=== PATIENT | male | born 1965 | race Caucasian/White ===

== ENCOUNTER 2017-01-26 13:06 | Emergency (ER) | payer OTHER ==
[~2017-01-26] VITALS: Ht 175.3 cm; Wt 117.9 kg
[~2017-01-26 13:06] MED LIST: CIPROFLOXACIN500 MG PO; DILAUDID4 MG PO; FENTANYL1 EAC2 TD; GABAPENTIN300 MG PO; GEODON20 MG PO; HYDROCHLOROTH12.5 MG PO; LISINOPRIL20 MG PO; METOPROLOL TART25 MG PO; METRONIDAZOLE250 MG PO; OXYCODONE HCL5 MG PO; PERCOCET 10-321 EACH PO; PREVACID30 MG PO; SYNTHROID88 MCG PO
[2017-01-26] MEDS ORDERED: ZITHROMAX250 MG PO (14:23)
--- NOTE | 2017-01-27 07:42 | EKG ---
[facility] [address] [facility] [place], [place] [address] Signed Normal sinus rhythm Normal ECG No previous ECGs available Confirmed by KARRIE PRATHER MD ([id number]) on 01/27/2017 7:42:22 AM Electronically Signed By: KARRIE PRATHER MD 01/27/17 0742 PATIENT NAME: ROSAMARIA DONALD Electrocardiogram DATE OF : 69 PHYSICIAN: KARRIE PRATHER MD REPORT #: [id number] REPORT IS CONFIDENTIAL AND NOT TO BE RELEASED WITHOUT AUTHORIZATION
== END 2017-01-26 14:45 | disposition home or self-care (01) ==
LOC: ED 13:06
DX: J40 Bronchitis, not specified as acute or chronic (principal); I10 Essential (primary) hypertension; K21.9 Gastro-esophageal reflux disease without esophagitis; E03.9 Hypothyroidism, unspecified; F17.200 Nicotine dependence, unspecified, uncomplicated; Z88.8 Allergy status to other drugs, medicaments and biological substances; Z79.899 Other long term (current) drug therapy
CPT/HCPCS: 71020; 80053; 81001; 85025; 93005; 93010; 99283

== ENCOUNTER 2017-05-11 09:04 | Day surgery (SDC) | payer OTHER ==
[~2017-05-11] VITALS: Ht 175.3 cm; Wt 110.2 kg
[~2017-05-11 09:04] MED LIST changes: +ADVAIR 250-501 EACH INH; +BUPROPION XL300 MG PO; +EPIN0.3P IM; +LISINOPRIL40 MG PO; +NEURONTIN600 MG PO; +PANTOPRAZOLE SO40 MG PO; +SYNTHROID175 MCG PO; +VITAMIN D350000 UNIT PO; +ZITHROMAX250 MG PO
--- NOTE | 2017-05-11 10:45 | NUR ---
05/11/17 1045 Latha Patricia 1040 PATIENT ARRIVES TO PACU AWAKE OFF/ON. RESP EVEN AND UNLABORED, NC @ 4 LITERS, SATS 89-94%. PATIENT DENIES PAIN OR NAUSEA.
--- NOTE | 2017-05-12 07:54 | OR ---
[facility] [address] [place], [place] [address] Signed DATE OF OPERATION: 05/11/2017 SURGEON: Livia Barbre MD COLONOSCOPY REPORT PREOPERATIVE DIAGNOSIS: Screening. POSTOPERATIVE DIAGNOSES: 1. 4-5 mm polyps at proximal right colon; 72 cm, 65 cm and 22 cm. 2. Urkylkm-qu-hcujznyc internal hemorrhoids. PROCEDURE: Colonoscopy with hot biopsy. ESTIMATED BLOOD LOSS: None. 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 He was asked to see me for his initial colonoscopy. He said he has no lower GI complaints. There is no family history of colon cancer or polyps. In the office, I gave him a pamphlet on colonoscopy. We looked at that together along with the risks including, but not limited to gas bloating, crampy abdominal pain, bleeding, perforation, requiring surgery, and missed diagnosis. We also discussed the need for IV conscious sedation. He had expressed understanding and wished to proceed. PROCEDURE NOTE: Mando was taken into our endoscopy suite and placed in the left lateral decubitus position. He was given preoperative antibiotic along with 10 mg of Versed and 175 mcg of fentanyl to cover the case. A digital rectal exam was performed and I could feel the bottom of the prostate. It was a little indurated, but no nodules. The adult colonoscope was then introduced and advanced all around into the cecum under direct visualization of camera without difficulty. His prep was good. The scope was then withdrawn. The above-mentioned polyps were removed with the help of hot biopsy forceps. The scope had been retroflexed and he does have some mccsuhd-lq-kycgtzgj internal hemorrhoid columns. After this, the gas was suctioned out and the colonoscope removed. Blu tolerated the procedure quite well. Electronically Signed By: LIVIA BARBER MD 05/12/17 0754 PATIENT NAME: BLU DONALD OPERATIVE REPORT DATE OF : 69 REPORT #: [id number] PHYSICIAN: LIVIA BARBER MD PCP: NATALIE INTERIANO DO REPORT IS CONFIDENTIAL AND NOT TO BE RELEASED WITHOUT AUTHORIZATION [address] [address] Signed RECOMMENDATIONS: I will see Blu back in my office in 7 to 14 days to review his results. Livia Barber MD ALB/MODL /[id number] cc: DO Livia Herrera MD Copies: NATALIE INTERIANO ANDREW L MD ~ Electronically Signed By: LIVIA BARBER MD 05/12/17 0754 PATIENT NAME: BLU DONALD OPERATIVE REPORT DATE OF : 69 REPORT #: [id number] PHYSICIAN: LIVIA BARBER MD PCP: NATALIE INTERIANO DO REPORT IS CONFIDENTIAL AND NOT TO BE RELEASED WITHOUT AUTHORIZATION
== END 2017-05-11 11:20 | disposition home or self-care (01) ==
LOC: OPS 09:04 → DS 09:04 → OPS 10:30
PROVIDERS: Colon & Rectal Surgery
PROC: 0DBE8ZZ Excision of Large Intestine, Via Natural or Artificial Opening Endoscopic (ICD-10-PCS; 2017-05-11)
PROC: 0DBK8ZZ Excision of Ascending Colon, Via Natural or Artificial Opening Endoscopic (ICD-10-PCS; principal; 2017-05-11 10:30)
DX: Z12.11 Encounter for screening for malignant neoplasm of colon (principal); D12.2 Benign neoplasm of ascending colon; D12.6 Benign neoplasm of colon, unspecified; K63.5 Polyp of colon; K64.8 Other hemorrhoids; I10 Essential (primary) hypertension; M19.90 Unspecified osteoarthritis, unspecified site; Z79.51 Long term (current) use of inhaled steroids; Z79.899 Other long term (current) drug therapy
CPT/HCPCS: 88305; 99153; G0500; J2250; J3010; J3490; J7120

== ENCOUNTER 2018-06-06 08:55 | Emergency (ER) | payer OTHER ==
[~2018-06-06] VITALS: Ht 175.3 cm; Wt 110.2 kg
--- OUTSIDE RECORDS SUMMARY | ~2018-06-06 | XMS | Encounter Summary ---
Demographics + + + | Address | [address] | | | [place] [address] | + + + | Home Phone | | + + + | Preferred Language | Unknown | + + + | Marital Status | Legally | + + + | Yarsanism Affiliation | 1025 | + + + | Race | Unknown | + + + | Ethnic Group | Unknown | + + + Author + + + | Author | [facility] | | | and [place] | + + + | Organization | [facility] | | | and [place] | + + + | Address | Unknown | + + + | Phone | Unavailable | + + + Support + + +---------+ + | Name | Relationship | Address | Phone | + + +---------+ + | Miya Lynch | ECON | Unknown | | + + +---------+ + Care Team Providers + +------+ + | Care Compressor Assembler Name | Role | Phone | + +------+ + | Parker Perales DO | PCP | | + +------+ + Reason for Referral Consultation (Routine) + + + + + + + | Status | Reason | Specialty | Diagnoses / | Referred By | Referred To | | | | | Procedures | Contact | Contact | + + + + + + + | Authorized | Specialty | Neurology | Diagnoses | Adwoa, | Chuck, | | | Services | | SHERI | Paola Rust DO | Nasra Gregg, | | | Required | | (obstructive | [address] | [address] | | | | | sleep | [place], | [address], | | | | | apnea) | [place] [address] | [place] | | | | | | Phone: | [place], [place] | | | | | | [phone] | [address] Phone: | | | | | | Fax: | [phone] | | | | | | [phone] | Fax: | | | | | | | [phone] | + + + + + + + Evaluate & Treat (Routine) + + + + + + + | Status | Reason | Specialty | Diagnoses / | Referred By | Referred To | | | | | Procedures | Contact | Contact | + + + + + + + | Authorized | Specialty | Physical | Diagnoses | Adwoa | Cc Wgr | | | Services | Therapy / | Chronic | Paola A, DO | Therapy Pt | | | Required | Rehabilitatio | neck and | [address] | [address] | | | | n | back pain | [place], | [place], | | | | | Chronic | [place] [address] | [place] [address] | | | | | bilateral | Phone: | Phone: | | | | | low back | [phone] | [phone] | | | | | pain with | Fax: | Fax: | | | | | bilateral | [phone] | [phone] | | | | | sciatica | | | | | | | Chronic left | | | | | | | shoulder | | | | | | | pain | | | | | | | Procedures | | | | | | | PT EVAL | | | + + + + + + + Evaluate & Treat (Routine) + + + + + + + | Status | Reason | Specialty | Diagnoses / | Referred By | Referred To | | | | | Procedures | Contact | Contact | + + + + + + + | Authorized | Specialty | Orthopedic | Diagnoses | Adwoa, | Annamarie, | | | Services | Surgery | Bilateral | Paola Rust DO | Mauro | | | Required | | carpal | [address] | MD Brandan | | | | | tunnel | [place], | [address] | | | | | syndrome | [place] [address] | [address] [place], | | | | | | Phone: | [place] [address] | | | | | | [phone] | Phone: | | | | | | Fax: | [phone] | | | | | | [phone] | Fax: | | | | | | | [phone] | + + + + + + + Evaluate & Treat (Routine) + + + + + + + | Status | Reason | Specialty | Diagnoses / | Referred By | Referred To | | | | | Procedures | Contact | Contact | + + + + + + + | Authorized | Specialty | Anesthesiolog | Diagnoses | Adwoa, | Mary, | | | Services | y | Chronic | Paola Rust DO | MD [place] | | | Required | | neck and | [address] | [address] | | | | | back pain | [place], | [facility] | | | | | Degenerative | [place] [address] | Rd [place], | | | | | disc | Phone: | [place] | | | | | disease, | [phone] | [address] | | | | | cervical | Fax: | Phone: | | | | | Chronic | [phone] | [phone] | | | | | bilateral | | Fax: | | | | | low back | | [phone] | | | | | pain with | | | | | | | bilateral | | | | | | | sciatica | | | + + + + + + + Reason for Visit + + + | Reason | Comments | + + + | Establish Care | | + + + | Carpal Tunnel | Bilat, x5yrs | + + + | Referral | [facility] | | (PreAuthorization) | | + + + Encounter Details +--------+---------+ + + + | Date | Type | Department | Care Team | Description | +--------+---------+ + + + | 05/26/ | Office | [place] | Paola Orona, | Encounter to | | 2019 | Visit | [facility] | DO [address] [place] | establish care | | | | [facility] [address] | [place] [address] | (Primary Dx); | | | | [address] [place], | [phone] | Chronic neck and | | | | [place] [address] | | back pain; | | | | [phone] | | Degenerative disc | | | | | | disease, cervical; | | | | | | Chronic bilateral | | | | | | low back pain with | | | | | | bilateral sciatica; | | | | | | Chronic left | | | | | | shoulder pain; SHERI | | | | | | (obstructive sleep | | | | | | apnea); Bipolar 1 | | | | | | disorder (HCC); | | | | | | Tobacco use; | | | | | | Essential | | | | | | hypertension; | | | | | | Hyperlipidemia, | | | | | | unspecified | | | | | | hyperlipidemia type; | | | | | | Acquired | | | | | | hypothyroidism; | | | | | | Vitamin D | | | | | | deficiency; | | | | | | Bilateral carpal | | | | | | tunnel syndrome; | | | | | | Other specified | | | | | | diabetes mellitus | | | | | | without | | | | | | complication, | | | | | | without long-term | | | | | | current use of | | | | | | insulin (HCC); | | | | | | Abnormal function of | | | | | | pupil of left eye | +--------+---------+ + + + Social History + + + +--------+ + | Tobacco Use | Types | Packs/Day | Years | Date | | | | | Used | | + + + +--------+ + | Current Every Day | Cigarettes | 0.5 | | Started: 05/26/2016 | | Smoker | | | | | + + + +--------+ + + +---+---+---+ | Smokeless Tobacco: | | | | | Former User | | | | + +---+---+---+ + + | Tobacco Cessation: Ready to Quit: Yes; Counseling Given: Yes | | Comments: Quit multiple times for yrs at a time. | + + + + +---------+ + | Alcohol Use | Drinks/We | oz/Week | Comments | | | ek | | | + + +---------+ + | Yes | 1 Cans | 0.6 | Once a yr. | | | of beer | | | + + +---------+ + + + + | Sex Assigned at | Date Recorded | | | | + + + | Not on file | | + + + + + + + | Job Start Date | Occupation | Industry | + + + + | Not on file | Not on file | Not on file | + + + + + + + + | Travel History | Travel Start | Travel End | + + + + + + | No recent travel history available. | + + documented as of this encounter Last Filed Vital Signs + + + + | Vital Sign | Reading | Time Taken | + + + + | Blood Pressure | 138/78 | 05/26/2018 1330 PDT | + + + + | Pulse | 56 | 05/26/2018 1330 PDT | + + + + | Temperature | 36.7 C (98 F) | 05/26/20180 PDT | + + + + | Respiratory Rate | 18 | 05/26/2018 1330 PDT | + + + + | Oxygen Saturation | 94% | 05/26/20180 PDT | + + + + | Inhaled Oxygen | - | - | | Concentration | | | + + + + | Weight | 88.5 kg (195 lb) | 05/26/2018 1330 PDT | + + + + | Height | 175.3 cm (5' 9") | 05/26/2018 1330 PDT | + + + + | Body Mass Index | 28.8 | 05/26/2018 1330 PDT | + + + + documented in this encounter Patient Instructions Patient Instructions Paola Orona DO - 05/26/2018 13:30 PDTReturn for lab and we will c all you with results. documented in this encounter Progress Notes Paola Orona DO - 05/26/2018 1330 PDTFormatting of this note might be different from paige elmore. Subjective: Patient ID: Blu Abdullahi is a 53 y.o. male. Here to establish care. Has been following with neurology for his chronic pain of neck and back. Has had multiple neck surgery and still has chronic pain. Would like referral to pain clinic in [place]. Needs refill on Neurontin that helps he states. He had EMG by Dr Chavez in [place] for bilateral carpal tunnel syndrome and would like to see Ortho in [facility] for this. Has numbness and stiffness in both hands. He is permanently disabled mostly due to the back and neck. He has untreated SHERI and agrees to see Dr Rodriguez for eval and Tx of this. States sn ores, gasps and wakes up tired. He is still smoking and declines to quit at this time. He laws s left shoulder chronic pain and stiffness and would like to work with PT on this and his ba ck and neck issues so we will make referral. He is right handed. Had Hep C with antiviral Tx and has been clear. Has HTN well controlled. Takes statin for HLD and due for recheck on th is and his hypothyroidism. Had colonoscopy by Dr Chand in [place] last year 2017 and was NL . States UTD on immunizations. Bipolar and states is stable and works with Renetta Aguilar for therapy and meds. Review of Systems Constitutional: Negative. HENT: Negative. Eyes: Left eye dilated permanent due to injury Vision present Respiratory: Negative. Cardiovascular: Negative. Gastrointestinal: Negative. Endocrine: Thyroid as above due for lab Genitourinary: Negative. Musculoskeletal: Chronic pain issues as above Skin: Negative. Allergic/Immunologic: Negative. Neurological: Positive for numbness. Carpal tunnel as above Psychiatric/Behavioral: Bipolar stable as above Social History Socioeconomic History Marital status: Legally Spouse name: Not on file Number of children: 10 Years of education: HS grad Highest education level: Not on file Social Needs Financial resource strain: Not on file Food insecurity - worry: Not on file Food insecurity - inability: Not on file Transportation needs - medical: Not on file Transportation needs - non-medical: Not on file Occupational History Occupation: unemployed Tobacco Use Smoking status: Current Every Day Smoker Packs/day: 0.50 Types: Cigarettes Start date: 05/26/2016 Smokeless tobacco: Former User Tobacco comment: Quit multiple times for yrs at a time. Substance and Sexual Activity Alcohol use: Yes Alcohol/week: 0.6 oz Types: 1 Cans of beer per week Comment: Once a yr. Drug use: Yes Frequency: 7.0 times per week Types: Marijuana Sexual activity: Not Currently Other Topics Concern Not on file Social History Narrative Not on file Past Medical History: Diagnosis Date Arthritis Asthma Chronic back pain DDD (degenerative disc disease) Hypertension Neck injury 2016 Testosterone deficiency Thyroid disease Past Surgical History: Procedure Laterality Date neck fusion 08/24/2017 C1-T1 at [facility] with Dr. Ceballos SHOULDER ARTHROPLASTY Bilateral SPINAL FUSION Family History Problem Relation Age of Onset Asthma Mother Other (see comment) Mother hyperthyroid Cancer Father lung Other (see comment) Father CHF Asthma Sister Cancer Sister 54 brain cancer Asthma Brother COPD Maternal Uncle Cancer Maternal Grandfather liver Cancer Paternal Grandfather liver Other (see comment) Other thyroid disease-thyroidectomy Cancer Other 50 neck cancer Cancer Other brain Objective: BP 138/78 | Pulse 56 | Temp 36.7 C (98 F) (Oral) | Resp 18 | Ht 1.753 m (5' 9") | Wt 88.5 kg (195 lb) | SpO2 94% | BMI 28.80 kg/m Physical Exam Constitutional: He is oriented to person, place, and time. He appears well-developed and we ll-nourished. No distress. HENT: Head: Normocephalic and atraumatic. Mouth/Throat: Oropharynx is clear and moist. Bilateral TM's clear Eyes: Right eye exhibits no discharge. Left eye exhibits no discharge. No scleral icterus. Left pupil dilated chronic Neck: No tracheal deviation present. No thyromegaly present. Cardiovascular: Normal rate, regular rhythm and normal heart sounds. No murmur heard. Pulmonary/Chest: Effort normal and breath sounds normal. No respiratory distress. Abdominal: Soft. Bowel sounds are normal. He exhibits no distension. There is no tenderness . Musculoskeletal: He exhibits no edema. Left shoulder frozen at 50 % ROM. + Tinnels and Phalens testing bilateral wrists. Lymphadenopathy: He has no cervical adenopathy. Neurological: He is alert and oriented to person, place, and time. No cranial nerve deficit . Skin: Skin is warm and dry. Psychiatric: He has a normal mood and affect. His behavior is normal. Judgment and thought content normal. Assessment: 1. Encounter to establish care 2. Chronic neck and back pain Pain Clinic, External - AMB Referral * Gonzalo Montero [facility] Physical Therapy - AMB Referral 3. Degenerative disc disease, cervical Pain Clinic, External - AMB Referral 4. Chronic bilateral low back pain with bilateral sciatica Pain Clinic, External - AMB Ref erral * Gonzalo Montero [facility] Physical Therapy - AMB Referral 5. Chronic left shoulder pain * Gonzalo Montero [facility] Physical Therapy - AMB Referral 6. SHERI (obstructive sleep apnea) AMB Referral to [facility] Neurology 7. Bipolar 1 disorder (HCC) 8. Tobacco use 9. Essential hypertension CBC with Differential Comprehensive Metabolic Panel 10. Hyperlipidemia, unspecified hyperlipidemia type Lipid Panel 11. Acquired hypothyroidism TSH 12. Vitamin D deficiency Vitamin D, Deficiency Screen (25-Hydroxy) 13. Bilateral carpal tunnel syndrome Orthopedic Surgery, External - AMB Referral gabapentin (NEURONTIN) 600 MG tablet Plan: Referral to [place] for pain clinic. Referral to ortho [place] for carpal tunnel repair . Referral to Dr Woods for sleep eval and Tx. Referral to PT for back, neck and frozen shou lder. Lab, TSH, lipids, CBC, CMP and vitamin D that was low prior at 11. Encouraged stop felix richie. Continue FU with Jeff for mental health. Refilled Neurontin. Continue the good HTN c ontrol. documented in this encou nter Plan of Treatment +--------+---------+ + + + | Date | Type | Specialty | Care Team | Description | +--------+---------+ + + + | 07/05/ | Office | Neurology | Luis Miguel Chavez MD | | | 2019 | Visit | | [address] | | | | | | [place], [place] | | | | | | [address] | | | | | | | | +--------+---------+ + + + + +--------+ + + | Name | Priori | Associated Diagnoses | Order Schedule | | | ty | | | + +--------+ + + | CBC with Differential | Routin | Essential | 1 Occurrences | | | e | hypertension | starting 05/26/2018 | | | | | until 05/27/2019 | + +--------+ + + | Comprehensive Metabolic Panel | Routin | Essential | Expected: | | | e | hypertension | 05/26/2018, Expires: | | | | | 05/27/2019 | + +--------+ + + | Lipid Panel | Routin | Hyperlipidemia, | Expected: | | | e | unspecified | 05/26/2018, Expires: | | | | hyperlipidemia type | 05/27/2019 | + +--------+ + + | TSH | Routin | Acquired | 1 Occurrences | | | e | hypothyroidism | starting 05/26/2018 | | | | | until 05/27/2019 | + +--------+ + + | Vitamin D, Deficiency Screen | Routin | Vitamin D | Ordered: 05/26/2018 | | (25-Hydroxy) | e | deficiency | | + +--------+ + + + +--------+ + + | Name | Priori | Associated Diagnoses | Order Schedule | | | ty | | | + +--------+ + + | Pain Clinic, External - AMB | Routin | Chronic neck and | Ordered: 05/26/2018 | | Referral | e | back pain | | | | | Degenerative disc | | | | | disease, cervical | | | | | Chronic bilateral | | | | | low back pain with | | | | | bilateral sciatica | | + +--------+ + + | Orthopedic Surgery, External - | Routin | Bilateral carpal | Ordered: 05/26/2018 | | AMB Referral | e | tunnel syndrome | | + +--------+ + + | * [facility] | Routin | Chronic neck and | Ordered: 05/26/2018 | | Therapy - AMB Referral | e | back pain Chronic | | | | | bilateral low back | | | | | pain with bilateral | | | | | sciatica Chronic | | | | | left shoulder pain | | + +--------+ + + | [facility]B [facility] | Routin | SHERI (obstructive | Ordered: 05/26/2018 | | | e | sleep apnea) | | + +--------+ + + documented as of this encounter Visit Diagnoses + + | Diagnosis | + + | Encounter to establish care - Primary Reserved for inherently not codable concepts | | WITHOUT codable children | + + | Chronic neck and back pain | + + | Degenerative disc disease, cervical Degeneration of cervical intervertebral disc | + + | Chronic bilateral low back pain with bilateral sciatica | + + | Chronic left shoulder pain Pain in joint, shoulder region | + + | SHERI (obstructive sleep apnea) Obstructive sleep apnea (adult) (pediatric) | + + | Bipolar 1 disorder (HCC) Bipolar I disorder, most recent episode (or current) | | unspecified | + + | Tobacco use Tobacco use disorder | + + | Essential hypertension Unspecified essential hypertension | + + | Hyperlipidemia, unspecified hyperlipidemia type | + + | Acquired hypothyroidism Unspecified hypothyroidism | + + | Vitamin D deficiency Unspecified vitamin D deficiency | + + | Bilateral carpal tunnel syndrome Carpal tunnel syndrome | + + | Other specified diabetes mellitus without complication, without long-term current use | | of insulin (HCC) | + + | Abnormal function of pupil of left eye | + + documented in this encounter
--- OUTSIDE RECORDS SUMMARY | ~2018-06-06 | XMS | Clinical Summary ---
Demographics + + + | Address | [address] | | | [place] [address] | + + + | Home Phone | | + + + | Preferred Language | Unknown | + + + | Marital Status | Single | + + + | Restorationist Affiliation | JEH | + + + | Race | White | + + + | Ethnic Group | Not or | + + + Author + + + | Author | NON REVENUE LOCATIONS | + + + | Organization | NON REVENUE LOCATIONS | + + + | Address | Unknown | + + + | Phone | Unavailable | + + + Support + + +---------+ + | Name | Relationship | Address | Phone | + + +---------+ + | MARY MACK | ECON | Unknown | | + + +---------+ + Care Team Providers + +------+ + | Care Manager Enrollment Name | Role | Phone | + +------+ + | Kar Tree Barrera MAYERP | PP | | + +------+ + Source Comments SHAMA is fully live on both [facility] and [facility] InPatient.[facility] Allergies No Known Allergies Current Medications + + +---------+---------+------+------+-------+ | Prescription | Sig. | Disp. | Refills | Star | End | Statu | | | | | | t | Date | s | | | | | | Date | | | + + +---------+---------+------+------+-------+ | lisinopril 40 mg | Take 40 mg by mouth | | | 10/2 | | Activ | | oral tablet | once daily. | | | 5/20 | | e | | | | | | 17 | | | + + +---------+---------+------+------+-------+ | buPROPion XL 300 | Take 300 mg by mouth | | | 10/2 | | Activ | | mg oral tablet | once daily in the | | | 20 | | e | | extended release 24 | morning. | | | 17 | | | | hr | | | | | | | + + +---------+---------+------+------+-------+ | EPINEPHrine 0.3 | Inject 0.3 mg into | | | 11/0 | | Activ | | mg/0.3 mL injection | the muscle (IM) as | | | 10/28 | | e | | auto-injector | needed (severe | | | 17 | | | | | allergic reaction). | | | | | | + + +---------+---------+------+------+-------+ | sertraline | Take 50 mg by mouth | | | | | Activ | | (ZOLOFT) 50 mg oral | once daily at | | | | | e | | tablet | bedtime. | | | | | | + + +---------+---------+------+------+-------+ | | Inhale 1 puff two | | | | | Activ | | fluticasone-salmeter | times daily. | | | | | e | | ol 250-50 mcg/dose | | | | | | | | inhalation blister | | | | | | | | with device | | | | | | | + + +---------+---------+------+------+-------+ | VENTOLIN HFA 90 | Inhale 2 puffs by | | | 07/09 | | Activ | | mcg/actuation | mouth every six | | | 4 | | e | | inhalation HFA | hours as needed | | | 18 | | | | aerosol inhaler | (shortness of | | | | | | | | breath, wheezing). | | | | | | + + +---------+---------+------+------+-------+ | atorvastatin 20 mg | Take 20 mg by mouth | | | 07/10 | | Activ | | oral tablet | once daily at | | | 10/28 | | e | | | bedtime. | | | 18 | | | + + +---------+---------+------+------+-------+ | OLANZapine 2.5 mg | Take 1.25-2.5 mg by | | | | | Activ | | oral tablet | mouth once daily at | | | | | e | | | bedtime as needed | | | | | | | | (sleep). | | | | | | + + +---------+---------+------+------+-------+ | artificial tears | Instill 1 drop into | | | | | Activ | | (dextran | both eyes as needed | | | | | e | | 70-hypromellose) | (dry eyes). | | | | | | | (ARTIFICIAL | | | | | | | | TEARS([id number])) | | | | | | | | 0.1-0.3 % | | | | | | | | ophthalmic (eye) | | | | | | | | drops | | | | | | | + + +---------+---------+------+------+-------+ | levothyroxine 175 | Take 175 mcg by | | | | | Activ | | mcg oral tablet | mouth before | | | | | e | | | breakfast. | | | | | | + + +---------+---------+------+------+-------+ | | Take 1 tablet by | | | | | Activ | | multivitamin-mineral | mouth once daily. | | | | | e | | s oral tablet | | | | | | | + + +---------+---------+------+------+-------+ | metoprolol | Take 25 mg by mouth | | | | | Activ | | tartrate 25 mg oral | two times daily. | | | | | e | | tablet | | | | | | | + + +---------+---------+------+------+-------+ | pantoprazole 40 mg | Take 40 mg by mouth | | | | | Activ | | oral tablet,delayed | once daily. | | | | | e | | release (DR/EC) | | | | | | | + + +---------+---------+------+------+-------+ | senna-docusate | Take 2 tablets by | 60 | 0 | 07/2 | | Activ | | 8.6-50 mg oral | mouth two times | tablet | | 1/20 | | e | | tabletIndications: | daily. | | | 18 | | | | Pseudarthrosis | | | | | | | | following spinal | | | | | | | | fusion | | | | | | | + + +---------+---------+------+------+-------+ | polyethylene | Mix 1 packet and | | | 07/2 | | Activ | | glycol 17 gram oral | take orally three | | | 1/20 | | e | | powder in | times daily as | | | 18 | | | | packetIndications: | needed (1st line - | | | | | | | Pseudarthrosis | for no BM for 2 | | | | | | | following spinal | days). | | | | | | | fusion | | | | | | | + + +---------+---------+------+------+-------+ | acetaminophen 500 | Take 2 tablets by | | | 07/2 | | Activ | | mg oral | mouth every six | | | 320 | | e | | tabletIndications: | hours. | | | 18 | | | | Pseudarthrosis | | | | | | | | following spinal | | | | | | | | fusion | | | | | | | + + +---------+---------+------+------+-------+ | gabapentin 300 mg | Take 3 capsules by | 270 | 2 | 07/2 | | Activ | | oral | mouth three times | capsule | | 20 | | e | | capsuleIndications: | daily. | | | 18 | | | | Pseudarthrosis | | | | | | | | following spinal | | | | | | | | fusion | | | | | | | + + +---------+---------+------+------+-------+ | HYDROmorphone 4 mg | Take 1-2 tablets by | 50 | 0 | 08/2 | | Activ | | oral tablet | mouth every twelve | tablet | | 7/20 | | e | | | hours as needed for | | | 18 | | | | | severe pain. | | | | | | + + +---------+---------+------+------+-------+ | tiZANidine 4 mg | Take 1 tablet by | 40 | 0 | 08/2 | | Activ | | oral | mouth three times | tablet | | 7/20 | | e | | tabletIndications: | daily as needed | | | 18 | | | | Pseudarthrosis | (muscle spasms). | | | | | | | following spinal | Max: 36 mg / day. | | | | | | | fusion | | | | | | | + + +---------+---------+------+------+-------+ | buprenorphine HCl | Place 1 tablet under | 21 | 1 | 04/0 | | Activ | | 8 mg sublingual | tongue three times | tablet | | 2/20 | | e | | tablet, sublingual | daily. | | | 19 | | | + + +---------+---------+------+------+-------+ Active Problems + + + | Problem | Noted Date | + + + | Refusal of blood transfusions as patient is Orthodoxy | 08/23/2017 | + + + + + | Overview: Patient is one of [employer] and refuses | | transfusion of whole blood or any of its primary components (red | | cells, white cells, platelets or plasma). Regarding transfusion | | alternatives: Patient states that he accepts:1. Intraoperative | | blood salvage2. Minor fractions, which include albumin, clotting | | factors, cryoprecipitate, and erythropoietinThe transfusion blood | | refusal form ([id number]) was signed and scanned into the patients | | chart on 08/24/2017. For questions or concerns please contact | | Patient Blood Management at [phone], on Vocera, at [email or web address], | | or on Group pager [phone]. | + + + + + | Cervical radiculopathy | 05/31/2017 | + + + | Pseudarthrosis following spinal fusion | 04/07/2017 | + + + | Neck pain | 04/07/2017 | + + + Encounters +--------+ + + + + | Date | Type | Specialty | Care Team | Description | +--------+ + + + + | 05/24/ | Pharmacy | | | | | 2019 | Visit | | | | +--------+ + + + + from Last 3 Months Family History + + +------+ + | Medical History | Relation | Name | Comments | + + +------+ + | None | Other | | | + + +------+ + + +------+--------+ + | Relation | Name | Status | Comments | + +------+--------+ + | Other | | | | + +------+--------+ + Social History + + + +--------+------+ | Tobacco Use | Types | Packs/Day | Years | Date | | | | | Used | | + + + +--------+------+ | Former Smoker | Cigarettes | | 30 | | + + + +--------+------+ + +---+---+---+ | Smokeless Tobacco: | | | | | Never Used | | | | + +---+---+---+ + + +---------+ + | Alcohol Use | Drinks/We | oz/Week | Comments | | | ek | | | + + +---------+ + | No | | | | + + +---------+ + + + + | Sex Assigned at | Date Recorded | | | | + + + | Not on file | | + + + Last Filed Vital Signs + + + + | Vital Sign | Reading | Time Taken | + + + + | Blood Pressure | 106/70 | 10/04/2017 1:51 PM PDT | + + + + | Pulse | 76 | 10/04/2017 1:51 PM PDT | + + + + | Temperature | 36.7 C (98.1 F) | 10/04/2017 1:51 PM PDT | + + + + | Respiratory Rate | 12 | 08/31/2017 8:18 AM PDT | + + + + | Oxygen Saturation | 96% | 10/04/2017 1:51 PM PDT | + + + + | Inhaled Oxygen | - | - | | Concentration | | | + + + + | Weight | 103.2 kg (227 lb 9.6 | 10/04/2017 1:51 PM PDT | | | oz) | | + + + + | Height | 175.3 cm (5' 9") | 10/04/2017 1:51 PM PDT | + + + + | Body Mass Index | 33.61 | 10/04/2017 1:51 PM PDT | + + + + Plan of Treatment + + + + + | Health Maintenance | Due Date | Last Done | Comments | + + + + + | Influenza (Flu) | | 11/24/2016, 11/28/2012, | | | vaccination (#1) | 8 | 12/14/2008, Additional history | | | | | exists | | + + + + + Implants + +------+-------+ +--------+--------+--------+ | Implanted | Type | Area | Manufacture | Device | Expira | Model | | | | | r | | tion | / | | | | | | Identi | Date | Serial | | | | | | fier | | / Lot | + +------+-------+ +--------+--------+--------+ | Sealant Hemostatic Floseal | | N/A: | [id number] | | 01/10/ | [id number] | | Matrix Needle Free Adapter | | Spine | [facility] | | 2019 | 8 / | | 5ml - [id number]: | | | | | | /[id number] | | Qty: 6 on 08/24/2017 by | | | | | | 622 | | Kevyn Julio MD | | | | | | | + +------+-------+ +--------+--------+--------+ | Screw Bone 3.5mm 2.4mm 16mm | | Neck | [employer] [facility] | | | 04.615 | | Synapse Titanium 50d T15 | | | | | | .016 / | | Spine Cancellous Polyaxial | | | | | | / | | Self Tap Thread Lock - | | | | | | | | [id number]: Qty: 2 on | | | | | | | | 08/24/2017 by Kevyn Julio, | | | | | | | | MD | | | | | | | + +------+-------+ +--------+--------+--------+ | Screw Bone 3.5mm 2.4mm 14mm | | Neck | [employer] [facility] | | | 04.615 | | Synapse Titanium 50d T15 | | | | | | .014 / | | Spine Cancellous Polyaxial | | | | | | / | | Self Tap Thread Lock - | | | | | | | | [id number]: Qty: 2 on | | | | | | | | 08/24/2017 by Kevyn Julio, | | | | | | | | MD | | | | | | | + +------+-------+ +--------+--------+--------+ | Screw Bone 4.5mm 8mm Synapse | | | [employer] [place] | | | 04.614 | | Titanium Spine Lock | | | | | | .508 / | | Nonsterile - | | | | | | / | | [id number]: Qty: 11 | | | | | | | | on 08/24/2017 by Sumanth, | | | | | | | | MD Kevyn | | | | | | | + +------+-------+ +--------+--------+--------+ | Uday Spinal 120mm 4mm Synapse | | | [employer] [place] | | | 04.615 | | Titanium Nonsterile - | | | | | | .526 / | | [id number]: Qty: 2 on | | | | | | / | | 08/24/2017 by Kevyn Julio, | | | | | | | | | | | | | | | + +------+-------+ +--------+--------+--------+ | Implant Allograft Cancellous | | N/A: | COMMUNITY | | 03/30/ | 1234-1 | | Crushed 60cc Frozen - | | Spine | TISSUE | | 3 | 4 | | [id number]: Qty: 1 | | | | | | /[id number] | | on 08/24/2017 by Sumanth, | | | | | | 5-035 | | MD Kevyn | | | | | | /74-31 | | | | | | | | 55 | + +------+-------+ +--------+--------+--------+ | Filler Bone Void 20ml | | N/A: | MUSCULOSKEL | | 03/03/ | [id number] | | Demineralized Bone Matrix Dbx | | Spine | ETAL | | 2019 | | | Allograft Mix Freeze Dried - | | | TRANSPLANT | | | / | | | | | | | | [id number] | | [id number]: | | | | | | [id number] | | Qty: 1 on 08/24/2017 by | | | | | | 5 / | | Kevyn Julio MD | | | | | | | + +------+-------+ +--------+--------+--------+ | Filler Bone Void 20ml | | N/A: | [employer]EL | | 03/03/ | [id number] | | Demineralized Bone Matrix Dbx | | Spine | ETAL | | 2019 | | | Allograft Mix Freeze Dried - | | | TRANSPLANT | | | /[id number] | | | | | | | | [id number] | | [id number]: | | | | | | [id number] | | Qty: 1 on 08/24/2017 by | | | | | | 3 / | | Kevyn Julio MD | | | | | | | + +------+-------+ +--------+--------+--------+ | Screw Bone 3.5mm 12mm Synapse | | Neck | [employer] [place] | | | 04.615 | | Titanium Spine Cancellous | | | | | | .012 / | | Polyaxial Nonsterile 4mm Uday | | | | | | / | | - [id number]: Qty: 2 | | | | | | | | on 08/24/2017 by Sumanth, | | | | | | | | MD Kevyn | | | | | | | + +------+-------+ +--------+--------+--------+ | Screw Bone 4.5mm 2.4mm 30mm | | Neck | [employer] [place] | | | 04.615 | | Synapse Titanium 40d T15 | | | | | | .230 / | | Spine Cancellous Polyaxial | | | | | | / | | Self Tap Thread Lock - | | | | | | | | [id number]: Qty: 1 on | | | | | | | | 08/24/2017 by Kevyn Julio, | | | | | | | | | | | | | | | + +------+-------+ +--------+--------+--------+ | Screw Bone 4mm 2.4mm 30mm | | Neck | [employer] [place] | | | 04.615 | | Synapse Titanium Cancellous | | | | | | .130 / | | Spine T15 Stardrive Threaded | | | | | | / | | Polyaxial Self - | | | | | | | | [id number]: Qty: 2 on | | | | | | | | 08/24/2017 by Kevyn Julio, | | | | | | | | MD | | | | | | | + +------+-------+ +--------+--------+--------+ | Screw Bone 3.5mm 2.4mm 18mm | | Neck | [employer] [place] | | | 04.615 | | Synapse Titanium 50d T15 | | | | | | .018 / | | Spine Cancellous Polyaxial | | | | | | / | | Self Tap Thread Lock - | | | | | | | | [id number]: Qty: 2 on | | | | | | | | 08/24/2017 by Kevyn Julio, | | | | | | | | MD | | | | | | | + +------+-------+ +--------+--------+--------+ + +------+------+ +--------+--------+--------+ | Explanted | Type | Area | Manufacture | Device | Expira | Model | | | | | r | | tion | / | | | | | | Identi | Date | Serial | | | | | | fier | | / Lot | + +------+------+ +--------+--------+--------+ | Screw Bone 3.5mm 2.4mm 16mm | | Neck | [employer] [place] | | | 04.615 | | Synapse Titanium 50d T15 | | | | | | .016 / | | Spine Cancellous Polyaxial | | | | | | / | | Self Tap Thread Lock - | | | | | | | | [id number]: Qty: 1 on | | | | | | | | 08/24/2017 | | | | | | | + +------+------+ +--------+--------+--------+ | Screw Bone 4.5mm 2.4mm 28mm | | Neck | [employer] [place] | | | 04.615 | | Synapse Titanium 40d T15 | | | | | | .228 / | | Spine Cancellous Polyaxial | | | | | | / | | Self Tap Thread Lock - | | | | | | | | [id number]: Qty: | | | | | | | | [id number]: Qty: 1 on | | | | | | | | 08/24/2017 | | | | | | | + +------+------+ +--------+--------+--------+ Results Not on filefrom Last 3 Months Insurance + +--------+ +--------+-------+---------+ | Payer | Benefi | Subscriber | Type | Phone | Address | | | t Plan | ID | | | | | | / | | | | | | | Group | | | | | + +--------+ +--------+-------+---------+ | CONTACT CENTER CONSULTANT MEDICAID | CONTACT CENTER CONSULTANT | xxxxxxxx | Medica | | | | | [place] | | id | | | | | [place] | | | | | + +--------+ +--------+-------+---------+ + +--------+ +--------+ + + | Guarantor Name | Accoun | Relation to | Date | Phone | Billing Address | | | t Type | Patient | of | | | | | | | | | | + +--------+ +--------+ + + | BLU ABDULLAHI | Person | Self [birth year] Home: | [address] | | | al/Fam | | [phone] | [phone] [address] [place] | | | [place] | | [phone] | + +--------+ +--------+ + +
--- OUTSIDE RECORDS SUMMARY | ~2018-06-06 | XMS | Clinical Summary ---
Demographics + + + | Address | [address] | | | [place] [address] | + + + | Home Phone | | + + + | Preferred Language | Unknown | + + + | Marital Status | Legally | + + + | Yarsani Affiliation | 1025 | + + + | Race | Unknown | + + + | Ethnic Group | Unknown | + + + Author + + + | Author | [facility] | | | and [place] | + + + | Organization | [facility] | | | and [...] Team Providers + +------+ + | Care Rehabilitation Caseworker Name | Role | Phone | + +------+ + | Parker Perales DO | PP | | + +------+ + Allergies + + + + + + | Active Allergy | Reactions | Severity | Noted | Comments | | | | | Date | | + + + + + + | Bee Pollen | Anaphylaxis | High | 02/26/19 | | | | | | 18 | | + + + + + + | Omeprazole | Nausea Only | Low | 05/03/19 | | | | | | 15 | | + + + + + + | Oxycodone-Acetaminop | Nausea Only | Low | 05/03/19 | | | hen | | | 15 | | + + + + + + Medications + + + +---------+------+------+-------+ | Medication | Sig | Dispensed | Refills | Star | End | Statu | | | | | | t | Date | s | | | | | | Date | | | + + + +---------+------+------+-------+ | buPROPion | Take 1 tablet by | 30 | 2 | 10/2 | | Activ | | (WELLBUTRIN XL) 150 | mouth Daily. | tablet | | 5/20 | | e | | mg 24 hr tablet | | | | 17 | | | + + + +---------+------+------+-------+ | ergocalciferol | Take 1 capsule by | 12 | 0 | 11/0 | | Activ | | (VITAMIN D-2) 50,000 | mouth Once a week. | capsule | | 6/20 | | e | | units capsule | | | | 17 | | | + + + +---------+------+------+-------+ | ADVAIR DISKUS | Inhale 1 puff into | 1 each | 11 | 11/0 | | Activ | | 250-50 MCG/DOSE | the lungs Twice | | | 6/20 | | e | | diskus inhaler | Daily. | | | 17 | | | + + + +---------+------+------+-------+ | sucralfate | Take 1 tablet by | 120 | 0 | 11/0 | | Activ | | (CARAFATE) 1 g | mouth 4 times daily. | tablet | | 6/20 | | e | | tablet | | | | 17 | | | + + + +---------+------+------+-------+ | EPINEPHrine | Inject 0.3 mLs into | 1 each | 0 | 11/0 | | Activ | | auto-injector 0.3 | the muscle as needed | | | 9/20 | | e | | mg/0.3 mL injection | for Anaphylaxis. | | | 17 | | | + + + +---------+------+------+-------+ | DULoxetine | Take 1 capsule by | 60 | 1 | 11/0 | | Activ | | (CYMBALTA) [address] | mouth Daily. May | capsule | | 9/20 | | e | | capsuleIndications: | increase to two tabs | | | 17 | | | | Musculoskeletal | at bedtime after | | | | | | | pain, chronic | one week | | | | | | + + + +---------+------+------+-------+ | levalbuterol | Inhale 1-2 puffs | 1 | 11 | 11/0 | | Activ | | (XOPENEX HFA) 45 | into the lungs every | Inhaler | | 9/20 | | e | | mcg/puff inhaler | 4 hours as needed | | | 17 | | | | | for Wheezing. | | | | | | + + + +---------+------+------+-------+ | metoprolol | TAKE ONE TABLET BY | 180 | 0 | 11/2 | | Activ | | tartrate (LOPRESSOR) | MOUTH TWICE DAILY | tablet | | 8/20 | | e | | 25 mg | | | | 17 | | | | tabletIndications: | | | | | | | | Hypertension, | | | | | | | | unspecified type | | | | | | | + + + +---------+------+------+-------+ | ibuprofen | TAKE ONE TABLET BY | 30 | 0 | 12/0 | | Activ | | (ADVIL,MOTRIN) 800 | MOUTH EVERY 8 HOURS | tablet | | 7/20 | | e | | MG | NEEDED FOR PAIN | | | 17 | | | | tabletIndications: | | | | | | | | Neck pain | | | | | | | + + + +---------+------+------+-------+ | levothyroxine | TAKE 1 TABLET BY | 30 | 0 | 02/0 | | Activ | | (SYNTHROID) 175 MCG | MOUTH ONCE DAILY | tablet | | 2/20 | | e | | tabletIndications: | | | | 18 | | | | Hypothyroidism, | | | | | | | | unspecified type | | | | | | | + + + +---------+------+------+-------+ | pantoprazole | TAKE ONE TABLET BY | 30 | 2 | 02/0 | | Activ | | (PROTONIX) 40 mg | MOUTH ONCE DAILY IN | tablet | | 2/20 | | e | | tabletIndications: | THE MORNING BEFORE | | | 18 | | | | Gastroesophageal | BREAKFAST | | | | | | | reflux disease, | | | | | | | | esophagitis presence | | | | | | | | not specified | | | | | | | + + + +---------+------+------+-------+ | Sertraline HCl | Take 75 mg by mouth | | 0 | | | Activ | | (ZOLOFT PO) | Daily. | | | | | e | + + + +---------+------+------+-------+ | acyclovir | Take 400 mg by mouth | | 0 | 09/2 | | Activ | | (ZOVIRAX) 400 MG | 2 times daily. | | | 4/20 | | e | | tablet | | | | 18 | | | + + + +---------+------+------+-------+ | VENTOLIN HFA 108 | | | 0 | 09/2 | | Activ | | (90 Base) MCG/ACT | | | | 4/20 | | e | | inhaler | | | | 18 | | | + + + +---------+------+------+-------+ | dextran | Instill 1 drop into | | 0 | | | Activ | | 70-hypromellose | both eyes as needed | | | | | e | | (ARTIFICIAL TEARS) | (dry eyes). | | | | | | | 0.1-0.3% ophthalmic | | | | | | | | solution | | | | | | | + + + +---------+------+------+-------+ | atorvaSTATin | Take 20 mg by mouth | | 0 | 09/2 | | Activ | | (LIPITOR) 20 mg | nightly. | | | 4/20 | | e | | tablet | | | | 18 | | | + + + +---------+------+------+-------+ | polyethylene | Take by mouth. | | 0 | 07/2 | | Activ | | glycol (MIRALAX) | | | | 1/20 | | e | | packet | | | | 18 | | | + + + +---------+------+------+-------+ | docusate-senna | Take 1 tablet by | | 0 | 07/2 | | Activ | | (SENOKOT-S) 50-8.6 | mouth as needed. | | | 1/20 | | e | | mg per tablet | | | | 18 | | | + + + +---------+------+------+-------+ | buPROPion | Take 300 mg by mouth | | 6 | 03/2 | | Activ | | (WELLBUTRIN XL) 300 | Daily. | | | 2/20 | | e | | mg 24 hr tablet | | | | 19 | | | + + + +---------+------+------+-------+ | LATUDA 40 MG | Take 40 mg by mouth | | 11 | 03/2 | | Activ | | tablet | Daily. | | | 4/20 | | e | | | | | | 19 | | | + + + +---------+------+------+-------+ | tiZANidine | Take 4 mg by mouth | | 0 | 08/2 | | Activ | | (ZANAFLEX) 4 mg | as needed. | | | 08/27 | | e | | tablet | | | | 18 | | | + + + +---------+------+------+-------+ | gabapentin | Take 1 tablet by | 90 | 4 | 05/09 | | Activ | | (NEURONTIN) 600 MG | mouth 3 times daily. | tablet | | 09/27 | | e | | tabletIndications: | | | | 19 | | | | Other specified | | | | | | | | diabetes mellitus | | | | | | | | without | | | | | | | | complication, | | | | | | | | without long-term | | | | | | | | current use of | | | | | | | | insulin (HCC) | | | | | | | + + + +---------+------+------+-------+ | lisinopril | Take 1 tablet by | 90 | 3 | 10/2 | 05/09 | Disco | | (PRINIVIL,ZESTRIL) | mouth Daily. | tablet | | 06/27 | 09/27 | ntinu | | 40 MG tablet | | | | 17 | 19 | ed | + + + +---------+------+------+-------+ | gabapentin | TAKE ONE TABLET BY | 90 | 0 | 01/2 | 04/ | Disco | | (NEURONTIN) 600 MG | MOUTH THREE TIMES | tablet | | 2/20 | 8/20 | ntinu | | tabletIndications: | DAILY | | | 18 | 19 | ed | | Type 2 diabetes | | | | | | | | mellitus with | | | | | | | | complication, with | | | | | | | | long-term current | | | | | | | | use of insulin (HCC) | | | | | | | + + + +---------+------+------+-------+ | OLANZapine | Take by mouth. 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 | + + + + + | Refusal of blood transfusions as patient is Quaker | 08/23/2017 | + + + + + | Overview: Overview: Patient is one of Jehovah's Witnesses and | | refuses transfusion of whole blood or any of its primary | | components (red cells, white cells, platelets or plasma). | | Regarding transfusion alternatives: Patient states that he | | accepts:1. Intraoperative blood salvage2. Minor fractions, which | | include albumin, clotting factors, cryoprecipitate, and | | erythropoietinThe transfusion blood refusal form ([id number]) was | | signed and scanned into the patients chart on 08/24/2017.For | | questions or concerns please contact Patient Blood Management at | | [phone], on [employer], at [email or web address], or on Group pager [phone]. | |For questions or concerns please contact Patient Blood Management at [phone], on [employer], at [email or web address], or on Group pager [phone]. | + + + + + | Cervical radiculopathy | 05/31/2017 | + + + | Pseudarthrosis following spinal fusion | 04/07/2017 | + + + | Chronic bilateral low back pain with bilateral sciatica | 02/26/2017 | + + + | Neuropathy | 12/17/2016 | + + + | Lipoma of back | 12/02/2016 | + + + | Bipolar 1 disorder | 12/01/2016 | + + + + + | Overview: Overview: | | Valproic acid. Bupropion. | | Dr. Mathis. | | PHQ 10. DORINDA 2. | | | | Last Assessment & Plan: | | Valproic acid. Bupropion. | | Dr. Mathis. | | PHQ 10. DORINDA 2. | + + + + + | Degenerative disc disease, cervical | 12/01/2016 | + + + + + | Overview: Overview: | | Fentanyl 100 mcg every 72 hours. Oxycodone 10 mg t.i.d. | | Opioid risk tool - 10 - high risk. | | Former use of medical marijuana. | | Referral to the pain clinic for chronic pain management. | | | | Last Assessment & Plan: | | Fentanyl 100 mcg every 72 hours. Oxycodone 10 mg t.i.d. | | Opioid risk tool - 10 - high risk. | | Former use of medical marijuana. | | Referral to the pain clinic for chronic pain management. | + + + + + | Hx of fusion of cervical spine | 12/01/2016 | + + + | GERD (gastroesophageal reflux disease) | 04/04/2014 | + + + + + | Overview: Overview: | | Prevacid. | | | | Last Assessment & Plan: | | Prevacid. | + + + + + | HCV (hepatitis C virus) | 04/04/2014 | + + + + + | Overview: Overview: | | Treated with interferon in the past. | | Monitor. | | | | Last Assessment & Plan: | | Treated with interferon in the past. | | Monitor. | + + + + + | HLD (hyperlipidemia) | 04/04/2014 | + + + + + | Overview: Overview: | | Diet + exercise. | | | | Last Assessment & Plan: | | Diet + exercise. | + + + + + | Hypogonadism male | 04/04/2014 | + + + + + | Overview: Overview: | | Testosterone. | | | | Last Assessment & Plan: | | Testosterone. | + + + + + | Hypothyroidism | 04/04/2014 | + + + + + | Overview: Overview: | | Restart levothyroxine 125 mcg daily. | | Monitor. | | | | Last Assessment & Plan: | | Restart levothyroxine 125 mcg daily. | | Monitor. | + + + + + | IFG (impaired fasting glucose) | 04/04/2014 | + + + + + | Overview: Overview: | | ADA Diet + exercise. | | | | Last Assessment & Plan: | | ADA Diet + exercise. | + + + + + | Migraine | 04/04/2014 | + + + + + | Overview: Overview: | | Hygienic measures. | | | | Last Assessment & Plan: | | Hygienic measures. | + + + + + | BPH (benign prostatic hyperplasia) | 01/26/2014 | + + + + + | Overview: Overview: | | Hygienic measures. | | PSA. | | | | Last Assessment & Plan: | | Hygienic measures. | | PSA. | + + + + + | HTN (hypertension) | 01/26/2014 | + + + + + | Overview: Overview: | | Lisinopril. HCTZ. Metoprolol. | | Monitor. | | | | Last Assessment & Plan: | | Lisinopril. HCTZ. Metoprolol. | | Monitor. | + + + + + | SHERI (obstructive sleep apnea) | 01/26/2014 | + + + + + | Overview: Overview: | | Referral for polysomnogram. | | | | Last Assessment & Plan: | | Referral for polysomnogram. | + + + + + | Osteoarthritis of multiple joints | 01/26/2014 | + + + + + | Overview: Overview: | | Hips, knees, back, neck and left shoulder. | | Fentanyl 150 mcg every 72 hours. Oxycodone 10 mg t.i.d. | | Opioid risk tool - 10 - high risk. | | Former use of medical marijuana. | | Pain clinic for chronic pain management. | | | | Last Assessment & Plan: | | Hips, knees, back, neck and left shoulder. | | Fentanyl 150 mcg every 72 hours. Oxycodone 10 mg t.i.d. | | Opioid risk tool - 10 - high risk. | | Former use of medical marijuana. | | Pain clinic for chronic pain management. | + + + +---+ | NECK PAIN | | + +---+ | Chronic left shoulder pain | | + +---+ + + | Overview: Long history of neck and low back pain with | | radicular symptoms of numbness and paresthesias to his arm and | | legs respectively. History of previous cervical spine fusion in | | 2004. Patient unable to use narcotics or medical marijuana due | | to probation. December 09, 2016: CT cervical spine: No acute | | finding identified. Disc and facet degenerative changes as above. | | Foraminal narrowing several levels December 09, 2016: CT | | lumbar spine: No acute finding. Disc degenerative changes lower | | lumbar spine. | + + Resolved Problems +---------+ + + | Problem | Noted | Resolved | | | Date | Date | +---------+ + + | Obesity | 04/04/19 | | | | 15 | 9 | +---------+ + + + + | Overview: Overview: | | Diet + exercise. | | | | Last Assessment & Plan: | | Diet + exercise. | + + Encounters +--------+---------+ + + + | Date | Type | Specialty | Care Team | Description | +--------+---------+ + + + | 05/26/ | Office | | Paola Orona, | Encounter to | | 2019 | Visit | | DO | establish care | | | | | | (Primary Dx); | | | | | | Chronic neck and | | | | | | back pain; | | | | | | Degenerative disc [...] left eye | +--------+---------+ + + + from Last 3 Months Immunizations + + + + | Name | Dates Previously Given | Next Due | + + + + | HEP A, 2 DOSE | 03/25/2016, 06/26/2015 | | | (ADULT) | | | + + + + | HEP A, 2 DOSE | 02/24/2001 | | | (PED/ADOL) | | | + + + + | HEP B, 3 DOSE | 03/25/2016, 06/26/2015, 02/24/2001 | | | (ADULT) | | | + + + + | INFLUENZA PF | 11/24/2016 | | | QUAD(PED/ADOL/ADULT) | | | | ,PSKT or VIAL | | | + + + + | INFLUENZA PF | 11/28/2012 | | | TRIVALENT(PED/ADOL/A | | | | DULT) PSKT | | | + + + + | INFLUENZA, | 12/14/2008 | | | UNSPECIFIED | | | | FORMULATION | | | + + + + | TDAP, (ADOL/ADULT) | 09/12/2013 | | + + + + Family History + + +--------+ + | Medical History | Relation | Name | Comments | + + +--------+ + | Asthma | Brother | | | + + +--------+ + | Cancer | Father | | lung | + + +--------+ + | Other (see comment) | Father | | CHF | + + +--------+ + | Cancer | Maternal | | liver | | | Grandfath | | | | | er | | | + + +--------+ + | COPD | Maternal | | | | | Uncle | | | + + +--------+ + | Asthma | Mother | | | + + +--------+ + | Other (see comment) | Mother | | hyperthyroid | + + +--------+ + | Other (see comment) | Other | cousin | thyroid disease-thyroidectomy | + + +--------+ + | Cancer | Other | cousin | neck cancer | + + +--------+ + | Cancer | Other | cousin | brain | + + +--------+ + | Cancer | Paternal | | liver | | | Grandfath | | | | | er | | | + + +--------+ + | Asthma | Sister | | | + + +--------+ + | Cancer | Sister | | brain cancer | + + +--------+ + + +--------+ + + | Relation | Name | Status | Comments | + +--------+ + + | Brother | | | | + +--------+ + + | Father | | | | + +--------+ + + | Maternal Grandfather | | | | + +--------+ + + | Maternal Uncle | | | | + +--------+ + + | Mother | | Alive | | + +--------+ + + | Other | cousin | Alive | | + +--------+ + + | Other | cousin | Alive | | + +--------+ + + | Other | cousin | | | + +--------+ + + | Paternal Grandfather | | | | + +--------+ + + | Sister | | | | + +--------+ + + Social History + + + [...] recent travel history available. | + + Last Filed Vital Signs + + + + | Vital Sign | Reading | Time Taken | + + + + | Blood Pressure | 138/78 | 05/26/2018 1330 PDT | + + + + | Pulse | 56 | 05/26/2018 1330 PDT | + + + + | Temperature | 36.7 C (98 F) | 05/26/20181329 PDT | + + + + | Respiratory Rate | 18 | 05/26/20181329 PDT | + + + + | Oxygen Saturation | 94% | 05/26/20181329 PDT | + + + + | Inhaled Oxygen | - | - | | Concentration | | | + + + + | Weight | 88.5 kg (195 lb) | 05/26/20181329 PDT | + + + + | Height | 175.3 cm (5' 9") | 05/26/20181329 PDT | + + + + | Body Mass Index | 28.8 | 05/26/2018 1330 PDT | + + + + Plan of Treatment +--------+---------+ + + + | Date | Type | Specialty | Care Team | Description | +--------+---------+ + + + | 07/05/ | Office | | Luis Miguel Chavez MD | | | 2019 | Visit | | [address] | | | | | | [place] | | | | | | [phone] | | | | | | | | +--------+---------+ + + + + + + + + | Health Maintenance | Due Date | Last Done | Comments | + + + + + | Vaccine: | | | | | Pneumococcal 19-64 | 6 | | | | (PPSV23 only) Medium | | | | | Risk ( - | | | | | PPSV23) | | | | + + + + + | Vaccine: Zoster (1 | | | | | of 2) | 7 | | | + + + + + | Vaccine: Influenza | | 11/24/2016, 11/28/2012, | | | (Season Ended) | 9 | 12/14/2008 | | + + + + + | Primary Care | | 05/26/2018, 11/04/2017, | | | Outreach (Moderate | 0 | 08/03/2017, Additional history | | | Risk) | | exists | | + + + + + | Vaccine: | | 09/12/2013 | | | Dtap/Tdap/Td (2 - | 4 | | | | Td) | | | | + + + + + | Colorectal Cancer | | | Postponed from | | Screening | 8 | | 2017 (Plan in | | (Colonoscopy) | | | Place) | + + + + + Results Not on filefrom Last 3 Months Insurance + +--------+ +--------+ +---------+--------+ | Payer | Benefi | Subscriber | Effect | Phone | Address | Type | | | t Plan | ID | [id number] | | | | | | / | | Dates | | | | | | Group | | | | | | + +--------+ +--------+ +---------+--------+ | [employer] | MOD[employer] | [id number] | 11/24/ | [phone] | | Medica | | MEDICAID HMO | HEALTH | | 2017-P | 1 | | id | | | MDCD | | resent | | | | | | [place] | | | | | | + +--------+ +--------+ +---------+--------+ | [place]ICAID [place] | MEDICA | [id number] | | [phone] | | Medica | | | ID | | 016-Pr | 8 | | id | | | NISHA | | esent | | | | | | A | | | | | | + +--------+ +--------+ +---------+--------+ + +--------+ +--------+ + + | Guarantor Name | Accoun | Relation to | Date | Phone | Billing Address | | | t Type | Patient | of | | | | | | | | | | + +--------+ +--------+ + + | Blu Abdullahi | Person | Self [birth year] | [address] | | | al/Fam | | 1964 [address] [place], [place] | | | [place] | | | [address] (Home) | [address] | + +--------+ +--------+ + + | Blu Abdullahi | Person | Self | [birth year] | [address] | | | al/Fam | | 1964 | [address] [place], [place] | | | [place] | | | [address] (Home) | [address] | + +--------+ +--------+ + + | Blu Abdullahi | Person | Self | [birth year] | | [address] | | | al/Fam | | 1965 | | [address] [place] | | | [place] | | | [address] ([place]) | [address] | + +--------+ +--------+ + + Advance Directives Patient has advance care planning documents on file. For more information, please contact:[facility] [place] [address]
--- OUTSIDE RECORDS SUMMARY | ~2018-06-06 | XMS | Clinical Summary ---
Demographics + + + | Address | [address] | | | [place] [address] | + + + | Home Phone | | + + + | Preferred Language | Unknown | + + + | Marital Status | Legally | + + + | Mu-Ism Affiliation | 1025 | + + + | Race | Unknown | + + + | Ethnic Group | Unknown | + + + Author + + + | Author | [facility] | | | and [place] | + + + | Organization | [facility] | | | and [...] Team Providers + +------+ + | Care Salesperson Flying Squad Name | Role | Phone | + [...] Refusal of blood transfusions as patient is Religious | 08/23/2017 | + + + + [...] contact Patient Blood Management at | | [phone], on Medif[employer], at [email or web address], or on Group pager [phone]. | |For questions or concerns please contact Patient Blood Management at [phone], on Medifocus, at [email or web address], or on Group pager [phone]. | + [...] [place] | | | | | | [address] | | | | | | | [...] | [employer] | MODA | [id number] | 11/24/ | [phone] | | Medica | | MEDICAID HMO | HEALTH | | 2017-P | 1 | | id | | | MDCD | | resent | | | | | | [place] | | | | | | + +--------+ +--------+ +---------+--------+ | MEDICAID [place] | MEDICA | [id number] | | [phone] | | Medica | | | ID [...] Person | Self | [birth year] | [address] | | | al/Fam | | 1964 | [address] [place], [place] | | | [place] | | | [address] (Home) | [address] | + +--------+ +--------+ + + | Blu Abdullahi | Person | Self | [birth year] | | [address] | | | al/Fam | | 1964 | [address] [place], [place] | | | [place] | | | [address] (Home) | [address] | + +--------+ +--------+ + + | Blu Abdullahi | Person | Self | [birth year] | | [address] | | | al/Fam | | 1965 | | [address] [place] | | | [place] | | | 6 ([place]) | [address] | + +--------+ +--------+ + + Advance Directives Patient has advance care planning documents on file. For more information, please contact:[facility] [place] [address]
--- OUTSIDE RECORDS SUMMARY | ~2018-06-06 | XMS | Encounter Summary ---
Demographics + + + | Address | [address] | | | [place] [address] | + + + | Home Phone | | + + + | Preferred Language | Unknown | + + + | Marital Status | Single | + + + | Orthodox Affiliation | JEH | + + + | Race | White | + + + | Ethnic Group | Not or | + + + Author + + + | Author | [facility] | + + + | Organization | [facility] | + + + | Address | Unknown | + + + | Phone | Unavailable | + + + Support + + +---------+ + | Name | Relationship | Address | Phone | + + +---------+ + | MARY MACK | ECON | Unknown | | + + +---------+ + Care Team Providers + +------+ + | Care Career Consultant Name | Role | Phone | + +------+ + | Tree Lakhani | PCP | | + +------+ + Encounter Details +--------+ + + + + | Date | Type | Department | Care Team | Description | +--------+ + + + + | 05/24/ | Pharmacy | Outpatient Retail | | | | 2019 | Visit | [facility] | | | | | | [address] | | | | | | [facility] | | | | | | [place], [place] | | | | | | [address] | | | +--------+ + + + + Social History + + + +--------+------+ [...] on file | | + + + as of this encounter Functional Status + + + + | Functional Status | Response | Date of Assessment | + + + + | Because of a physical, mental, or emotional | No | 08/27/2017 | | condition, do you have serious difficulty | | | | doing errands alone such as visiting the | | | | doctor? | | | + + + + + + + + | Cognitive Status | Response | Date of Assessment | + + + + | Because of a physical, mental, or emotional | No | 08/27/2017 | | condition, do you have serious difficulty | | | | concentrating, remembering, or making | | | | decisions? (5 years old or older) | | | + + + + as of this encounter Plan of Treatment Not on fileas of this encounter Visit Diagnoses Not on filein this encounter"
--- OUTSIDE RECORDS SUMMARY | ~2018-06-06 | XMS | Clinical Summary ---
Demographics + + + | Address | [address] | | | [place] [address] | + + + | Home Phone | | + + + | Preferred Language | Unknown | + + + | Marital Status | Single | + + + | Anabaptism Affiliation | JEH | + + + [...] Team Providers + +------+ + | Care Branch Service Representative Name | Role | Phone | + +------+ + | Kar Tree Barrera MAYERP | PP | | + +------+ + Source Comments SHAMA is fully live on both [facility] Ambulatory and [facility] InPatient.[facility] Allergies No Known Allergies Current Medications + [...] | | | | | | | TEARS([id number])) | | | | | | | [...] Refusal of blood transfusions as patient is Gnosticist | 08/23/2017 | + + + + [...] erythropoietinThe transfusion blood | | refusal form ([id number]) was signed and scanned into the patients | | chart on 08/24/2017. For questions or concerns please contact | | Patient Blood Management at [phone], on Vocera, at [email or web address], | | or on Group pager [phone]. [...] N/A: | RIZVI | | 01/10/ | [id number] | | Matrix Needle Free Adapter | | Spine | HEALTHCARE | | 2019 | 8 / | | 5ml - [id number]: | | | | | | /[id number] | | Qty: 6 on 08/24/2017 by | | | | | | 622 | | Kevyn Julio MD | | | | | | | + +------+-------+ +--------+--------+--------+ | Screw Bone 3.5mm 2.4mm 16mm | | Neck | SYNTHES [facility] | | | 04.615 | | Synapse Titanium 50d T15 | | | | | | .016 / | | Spine Cancellous Polyaxial | | | | | | / | | Self Tap Thread Lock - | | | | | | | | [id number]: Qty: 2 on | | | | | | | | 08/24/2017 by Kevyn Julio, | | | | | | | | MD | | | | | | | + +------+-------+ +--------+--------+--------+ | Screw Bone 3.5mm 2.4mm 14mm | | Neck | SYNTHES [facility] | | | 04.615 | | Synapse Titanium 50d T15 | | | | | | .014 / | | Spine Cancellous Polyaxial | | | | | | / | | Self Tap Thread Lock - | | | | | | | | [id number]: Qty: 2 on | | | | [...] | | | | / | | [id number]: Qty: 11 | | | | | [...] | | | .526 / | | [id number]: Qty: 2 on | | | | [...] | | 3 | 4 | | [id number]: Qty: 1 | | | | | | /[id number] | | on 08/24/2017 by Sumanth, | | | | | | 5-035 | | MD Kevyn | | | | | | /74-31 | | | | | | | | 55 | + +------+-------+ +--------+--------+--------+ | Filler Bone Void 20ml | | N/A: | MUSCULOSKEL | | 03/03/ | [id number] | | Demineralized Bone Matrix Dbx | | Spine | ETAL | | 2019 | | | Allograft Mix Freeze Dried - | | | TRANSPLANT | | | / | | | | | | | | [id number] | | [id number]: | | | | | | [id number] | | Qty: 1 on 08/24/2017 by | | | | | | 5 / | | Kevyn Julio MD | | | | | | | + +------+-------+ +--------+--------+--------+ | Filler Bone Void 20ml | | N/A: | MUSCULOSKEL | | 03/03/ | [id number] | | Demineralized Bone Matrix Dbx | | Spine | ETAL | | 2019 | | | Allograft Mix Freeze Dried - | | | TRANSPLANT | | | /[id number] | | | | | | | | [id number] | | [id number]: | | | | | | [id number] | | Qty: 1 on 08/24/2017 by [...] | | | / | | - [id number]: Qty: 2 | | | | | [...] | | | | | | | [id number]: Qty: 1 on | | | | [...] | | | | | | | [id number]: Qty: 2 on | | | | [...] | | | | | | | [id number]: Qty: 2 on | | | | [...] | | | | | | | [id number]: Qty: 1 on | | | | [...] | | | | | | | [id number]: Qty: | | | | | | [...] | | | + +--------+ +--------+-------+---------+ | 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
--- OUTSIDE RECORDS SUMMARY | ~2018-06-06 | XMS | Encounter Summary ---
Demographics + + + | Address | [address] | | | [place] [address] | + + + | Home Phone | | + + + | Preferred Language | Unknown | + + + | Marital Status | Single | + + + | Cheondoism Affiliation | JEH | + + + | Race | White | + + + | Ethnic Group | Not or | + + + Author + + + | Author | [facility] | + + + | Organization | [facility] | + + + | Address | Unknown | + + + | Phone | Unavailable | + + + Support + + +---------+ + | Name | Relationship | Address | Phone | + + +---------+ + | MARY MACK | ECON | Unknown | | + + +---------+ + Care Team Providers + +------+ + | Care Neonatologist Name | Role | Phone | + [...] | | | | | | [facility] | | | | | | [place], [place] | | | | | | [address] | | | +--------+ + + + [...]
--- OUTSIDE RECORDS SUMMARY | ~2018-06-06 | XMS | Encounter Summary ---
Demographics + + + | Address | [address] | | | [place] [address] | + + + | Home Phone | | + + + | Preferred Language | Unknown | + + + | Marital Status | Legally | + + + | Shinto Affiliation | 1025 | + + + | Race | Unknown | + + + | Ethnic Group | Unknown | + + + Author + + + | Author | [facility] | | | and [place] | + + + | Organization | [facility] | | | [...] Team Providers + +------+ + | Care Director Of Group Counseling Program Name | Role | Phone | + [...] | | | | apnea) | [place] [address] | [address] [address] | | | | | | Phone: | [place], [place] | | | | | | [phone] | [address] Phone: | | | | | | Fax: | [phone] | | | | | | [phone] | Fax: | | | | | | | [phone] | + + + + + + [...] | | | | Chronic | [place] [address] | [place] [address] | | | | | bilateral | Phone: | Phone: | | | | | low back | [phone] | [phone] | | | | | pain with | Fax: | Fax: | | | | | bilateral | [phone] | [phone] | | | | | sciatica | [...] | | | | syndrome | [place] [address] | [address], | | | | | | Phone: | [place] [address] | | | | | | [phone] | Phone: | | | | | | Fax: | [phone] | | | | | | [phone] | Fax: | | | | | | | [phone] | + + + + + + [...] | back pain | [place], | [facility] | | | | | Degenerative | [place] [address] | [address] [place], | | | | | disc | Phone: | [place] | | | | | disease, | [phone] | [address] | | | | | cervical | Fax: | Phone: | | | | | Chronic | [phone] | [phone] | | | | | bilateral | | Fax: | | | | | low back | | [phone] | | | | | pain with [...] to | | 2019 | Visit | [facility] | DO [address] | establish care | | | | [facility] [address] | [facility] [address] | (Primary Dx); | | | | [address] [place], | [phone] | Chronic neck and | | | | [place] [address] | | back pain; | | | | [phone] | | Degenerative disc | | | [...] Would like referral to pain clinic in [place]. Needs refill on Neurontin that helps he states. He had EMG by Dr Chavez in [place] for bilateral carpal tunnel syndrome and would like to see Ortho in [facility] for this. Has numbness and stiffness in [...] hypothyroidism. Had colonoscopy by Dr Chand in [place] last year 2017 and was NL . [...] Laterality Date neck fusion 08/24/2017 C1-T1 at [facility] with Dr. Ceballos SHOULDER ARTHROPLASTY Bilateral SPINAL [...] External - AMB Referral * Gonzalo Montero [facility] Physical Therapy - AMB Referral 3. Degenerative disc disease, cervical Pain Clinic, External - AMB Referral 4. Chronic bilateral low back pain with bilateral sciatica Pain Clinic, External - AMB Ref erral * Gonzalo Montero [facility] Physical Therapy - AMB Referral 5. Chronic left shoulder pain * Gonzalo Montero [facility] Physical Therapy - AMB Referral 6. SHERI (obstructive sleep apnea) AMB Referral to [facility] Neurology 7. Bipolar 1 disorder (HCC) 8. Tobacco use 9. Essential hypertension CBC with Differential Comprehensive Metabolic Panel 10. Hyperlipidemia, unspecified hyperlipidemia type Lipid Panel 11. Acquired hypothyroidism TSH 12. Vitamin D deficiency Vitamin D, Deficiency Screen (25-Hydroxy) 13. Bilateral carpal tunnel syndrome Orthopedic Surgery, External - AMB Referral gabapentin (NEURONTIN) 600 MG tablet Plan: Referral to [place] for pain clinic. Referral to ortho [place] [...] [place] | | | | | | [address] | | | | | | | [...] + +--------+ + + | * Gonzalo Montero [facility] Physical | Routin | Chronic neck and | Ordered: 05/26/2018 | | Therapy - AMB Referral | e | back pain Chronic | | | | | bilateral low back | | | | | pain with bilateral | | | | | sciatica Chronic | | | | | left shoulder pain | | + +--------+ + + | AMB Referral to [facility] Neurology | Routin | SHERI (obstructive | [...]
--- OUTSIDE RECORDS SUMMARY | 2018-06-06 09:00 | XMS ---
PreManage Notification: BLU DONALD Security Customer Account Executive Events No recent Security Events currently on file CRITERIA MET - [facility] Guidelines - PDMP CARE PROVIDERS NATALIE INTERIANO Family Medicine: Sports Medicine Current PHONE: Unknown ANTONIO HERNANDEZ Primary Care Current PHONE: [phone] Guidelines Source: [facility] Guidelines Date: 10/18/2017 Care Recommendation: ESTIMATED INTELLECTUAL ASSESSMENT: \T\nbsp;\T\nbsp;average\T\nbsp; MOOD: \T\nbsp; \T\nbsp;labile\T\nbsp; AFFECT: \T\nbsp;\T\nbsp;flattened\T\nbsp; SPEECH: \T\nbsp; \T\nbsp;slow\T\nbsp; THOUGHT PROCESS AND CONTENT: \T\nbsp;\T\nbsp;normal for age and intellect\T\nbsp; BEHAVIOR AND MOTOR ACTIVITY: \T\nbsp;\T\nbsp;appropriate to situation\T\nbsp; ORIENTATION: \T\nbsp;\T\nbsp;person,\T\nbsp;place,\T\nbsp; time,\T\nbsp;situation\T\nbsp; MEMORY: \T\nbsp;\T\nbsp;impaired recent,\T\nbsp; impaired remote\T\nbsp; INSIGHT: \T\nbsp;\T\nbsp;fair\T\nbsp; SAFETY PLAN \T\ nbsp;(Document current crisis, safety/support plan as appropriate.): \T\nbsp;\T\ nbsp;\T\nbsp; He will call [employer]. He has a bro in law who provides strong support. Current or recent suicidal or homicidal ideation, plan or attempt.: \T\ nbsp;\T\nbsp;\T\nbsp; still has suicide thoughts. Would agree to call [employer] crisis line. History of prior suicidal or homicidal ideation, plans or attempts.: \T\nbsp;\T\nbsp;\T\nbsp; put exhaust in his window about 10 years ago. History of aggression towards persons, animals or property.: \T\nbsp;\T\nbsp;\T\nbsp; been charged with assault in the past. SUICIDE RISK ASSESSMENT: \T\nbsp;\T\nbsp; Some suicidal risk\T\nbsp; As mentioned above, has had SI and made attempts. He does not currently have a plan and is reaching out for these reason. GENERAL RISK ASSESSMENT: \T\nbsp;\T\nbsp;Some general risk\T\nbsp; With physical pain and depression, it is important that Blu gets services to for his recovery. Blu has some barriers in addressing his mental health issues, including chronic pain, and past substance abuse. His sense of hope is that he is not a quitter \T\ nbsp;hearing voices, being depressed more days than not. He also has been diagnosed borderline personality, based on his disturbed and intense unstable self image. He describes it as vacillating. . He has also had a history of impulsivity in the areas of substance abuse, reckless driving. Threatens of self- harm E.D. VISIT COUNT ([address] [facility] [address] [facility] [place] TOTAL 3 NOTE: Visits indicate total known visits. ED/UCC VISIT TRACKING (12 MO.) 06/06/2018 08:56 [facility] [address] [facility] [place] TYPE: Emergency COMPLAINT: - ABD PAIN 10/13/2017 12[facility] TYPE: Emergency DIAGNOSES: 0. NEEDS MEDICAL CLEARANCE 06/26/2017 11:03 [facility] [place] TYPE: Emergency DIAGNOSES: 0. ABDOMINAL PAIN RIGHT SIDE. 2 DAYS INPATIENT VISIT TRACKING (12 MO.) 08/24/2017 05:44 [facility] TYPE: Neuro Surgery DIAGNOSES: [address]. Pseudarthrosis after fusion or arthrodesis [email or web address]
[2018-06-06] MEDS ORDERED: METOPROLOL TART25 MG PO (09:09)
[2018-06-06] MEDS ORDERED: SERTRALINE HCL100 MG PO (09:10)
[2018-06-06] MEDS ORDERED: OXYCODONE HCL5 MG PO (14:19)
[2018-06-06] MEDS ORDERED: ONDANSETRON ODT8 MG PO (14:22)
== END 2018-06-06 14:44 | disposition home or self-care (01) ==
LOC: ED 08:55
DX: K63.89 Other specified diseases of intestine (principal); G89.29 Other chronic pain; I10 Essential (primary) hypertension; E03.9 Hypothyroidism, unspecified; F17.200 Nicotine dependence, unspecified, uncomplicated; Z79.899 Other long term (current) drug therapy; Z88.8 Allergy status to other drugs, medicaments and biological substances
CPT/HCPCS: 74177; 80053; 85025; 96361; 99284-25; 99406; J1170; J1885; J2405; J7030; Q9967

== ENCOUNTER 2024-04-17 20:54 | Inpatient (IN) | payer OTHER ==
[~2024-04-17] VITALS: Ht 175.3 cm; Wt 97.2 kg
[~2024-04-17 20:54] MED LIST changes: +CHLORTHALIDONE25 MG PO; +K-TAB ER20 MEQ PO; +LASIX40 MG PO; +ONDANSETRON ODT8 MG PO; +ROSUVASTATIN CA20 MG PO; +SERTRALINE HCL100 MG PO
--- OUTSIDE RECORDS SUMMARY | 2024-04-17 21:01 | XMS ---
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 Events No recent Security Events currently on file CRITERIA MET - [facility] - 2 Visits in 30 Days CARE PROVIDERS CHANDNI SHETH Physician Outside Sales Account Manager 06/06/2018-Current PHONE: [phone] -, Donal Ortiz DMD Dentist: Political Science Chair Current PHONE: [phone] YAZMIN FLORIAN Nurse Practitioner: Family Current PHONE: Unknown [place] LUNDBERG [facility]: [facility] MEDICAL PHONE: [phone] JAYDON JUSTICE [facility] Current PHONE: Unknown Care Guidelines exist for the following facilities: Christianne Lau ( 10/18/2017 ) [facility] VISIT COUNT (12 MO.) 2 CAROLINA Oakes 2 Gonzalo Huntley (Bette LÓPEZ) TOTAL 4 NOTE: Visits indicate total known visits. ED/UCC VISIT TRACKING (12 MO.) 04/17/2024 20:55 CAROLINA Deleon TYPE: Emergency COMPLAINT: - LEG SWELLING/SOB 04/14/2024 21:30 CAR[place] Vences [place] TYPE: Emergency COMPLAINT: - SWOLLEN LEGS DIAGNOSES: - Allergy status to other drugs, medicaments and biological substances - Edema, unspecified - Gastro-esophageal reflux disease without esophagitis - Heart failure, unspecified - Hormone replacement therapy - Hypertensive heart disease with heart failure - Hypothyroidism, unspecified - Localized swelling, mass and lump, lower limb, bilateral - Nicotine dependence, unspecified, uncomplicated - Other remote computer terminal operator (current) drug therapy 03/11/2024 03:33 Gonzalo [place] ([facility]) TYPE: Emergency DIAGNOSES: - Toxic effect of unspecified substance, accidental (unintentional), initial encounter - Shortness of Breath - SOB 03/03/2024 15:12 Gonzalo HEATON ([place]ette ) TYPE: Emergency DIAGNOSES: - Pneumonia, unspecified organism - Cold-like Symptoms - Shortness of Breath, Congestion INPATIENT VISIT TRACKING (12 MO.) No inpatient visits to display in this time frame [email or web address]
[2024-04-17] MEDS ORDERED: FUROSEMIDE 40 MG/4 ML VIAL IV ONE (21:15)
[2024-04-17 21:20] LABS: HEMATOCRIT 39.4 % (35.0-50.0); HEMOGLOBIN 13.2 g/dL (12.0-18.0); LYMPHOCYTES 27.1 % (24-44); MCH 29.8 (27-36); MCHC 33.5 g/dl (30-36); MONOCYTES 11.3 % (0-12); NEUTROPHILS 56.6 % (39-80); PLATELET COUNT 247 K/uL (140-440); RBC 4.43 M/ul (4.3-5.7); RDW 17.5 (10.5-15.0)
[2024-04-17 21:42] LABS: ALBUMIN 3.2 g/dL (3.4-5.0); ALBUMIN/GLOBULIN RATIO 0.84 (1.1-2.4); ANION GAP 8.2 (7-21); BILIRUBIN, TOTAL 1.1 mg/dL (0.2-1.0); BUN/CREATININE RATIO 28.2 (6.0-28.6); CALCIUM 8.9 mg/dL (8.5-10.1); CREATININE, SERUM 0.78 mg/dL (0.70-1.30); POTASSIUM 4.2 mmol/L (3.5-5.1)
[2024-04-17 22:09] LABS: INFLUENZA B NAA NEGATIVE (NEGATIVE); RESPIRATORY SYNCYTIAL VIR NAA NEGATIVE (NEGATIVE)
[2024-04-17] MEDS ORDERED: MAGNESIUM SULFATE 2 GM/50 ML BAG IV ONE (23:00)
[2024-04-18] VITALS (8 sets, daily range): BP systolic 135–153; BP diastolic 78–91
[2024-04-18] MEDS ORDERED: buprenorphine HCL 8 MG TAB.SUBL SL SCH (02:12)
[2024-04-18] MEDS ORDERED: ondansetron HCL 4 MG/2 ML VIAL IV PRN ×2 (02:15→12:30)
[2024-04-18] MEDS ORDERED: ACETAMINOPHEN 325 MG TAB PO PRN ×2 (02:15→12:30)
[2024-04-18] MEDS ORDERED: FUROSEMIDE 40 MG/4 ML VIAL IV SCH (09:00)
[2024-04-18] MEDS ORDERED: POTASSIUM CHLORIDE 10 MEQ TABCR PO SCH (09:00)
[2024-04-18] MEDS ORDERED: ACYCLOVIR400 MG PO (10:21)
[2024-04-18] MEDS ORDERED: VENTOLIN HFA18 GM INH (10:22)
[2024-04-18] MEDS ORDERED: ARTIFICIAL TEAR15 M7 OU (10:23)
[2024-04-18] MEDS ORDERED: BUPRENORPHINE HC8 MG SL (10:24)
[2024-04-18] MEDS ORDERED: VITAMIN D350 MCG PO (10:25)
[2024-04-18] MEDS ORDERED: VITAMIN D21250 MCG PO (10:26)
[2024-04-18] MEDS ORDERED: FLUTICASONE-SA1 EAC4 INH (10:27)
[2024-04-18] MEDS ORDERED: GABAPENTIN800 MG PO (10:28)
[2024-04-18] MEDS ORDERED: LEVOTHYROXINE150 MCG PO (10:29)
[2024-04-18] MEDS ORDERED: NARCAN4 MG NAS (10:31)
[2024-04-18] MEDS ORDERED: POTASSIUM CHLO20 ME1 PO (10:32)
[2024-04-18] MEDS ORDERED: SERTRALINE HCL50 MG PO (10:34)
[2024-04-18] MEDS ORDERED: SILDENAFIL CIT100 MG PO (10:35)
[2024-04-18] MEDS ORDERED: TORSEMIDE20 MG PO (10:36)
--- NOTE | 2024-04-18 18:06 | EKG ---
[facility] [address] [place] [address] Signed Normal sinus rhythm Left bundle branch block Abnormal ECG When compared with ECG of 14-APR-2024 22:33, T wave inversion less evident in Lateral leads Confirmed by Demarco Jenkins MD () on 04/18/2024 6:06:37 PM Electronically Signed By: DEMARCO JENKINS MD 04/18/24 1806 PATIENT NAME: ODILONROSAMARIAJeet JUSTICE Electrocardiogram DATE OF : 69 PHYSICIAN: DEMARCO JENKINS MD REPORT #: [id number] REPORT IS CONFIDENTIAL AND NOT TO BE RELEASED WITHOUT AUTHORIZATION
[2024-04-18] MEDS ORDERED: ALBUTEROL SULFATE 0.083% 3 ML VIAL INH SCH (20:00)
[2024-04-18] MEDS ORDERED: BUDESONIDE 0.5 MG/2 ML VIAL INH SCH (20:00)
[2024-04-18] MEDS ORDERED: GABAPENTIN 400 MG CAP PO SCH (21:00)
[2024-04-18] MEDS ORDERED: carvediloL 3.125 MG TAB PO SCH (21:00)
[2024-04-18] MEDS ORDERED: SERTRALINE HCL 50 MG TAB PO SCH (21:00)
[2024-04-19] VITALS (12 sets, daily range): BP systolic 121–141; BP diastolic 71–86
[2024-04-19 06:10] LABS: BASOPHILS 1.1 % (0-2); EOSINOPHILS 4.8 % (0-6); HEMATOCRIT 41.2 % (35.0-50.0); HEMOGLOBIN 13.6 g/dL (12.0-18.0); LYMPHOCYTES 34.4 % (24-44); MCH 29.5 (27-36); MCHC 33.1 g/dl (30-36); MCV 89.1 fl (81-99); MONOCYTES 10.7 % (0-12); PLATELET COUNT 235 K/uL (140-440); RBC 4.62 M/ul (4.3-5.7); RDW 17.6 (10.5-15.0)
[2024-04-19 06:32] LABS: ALBUMIN 3.2 g/dL (3.4-5.0); ALBUMIN/GLOBULIN RATIO 0.84 (1.1-2.4); ANION GAP 7.3 (7-21); BILIRUBIN, TOTAL 1.1 mg/dL (0.2-1.0); BUN/CREATININE RATIO 28.39 (6.0-28.6); CALCIUM 8.6 mg/dL (8.5-10.1); CREATININE, SERUM 0.81 mg/dL (0.70-1.30); PHOSPHORUS, INORGANIC 4.5 mg/dL (2.5-4.9); POTASSIUM 4.3 mmol/L (3.5-5.1)
[2024-04-19] MEDS ORDERED: PANTOPRAZOLE SODIUM 40 MG TABEC PO SCH (09:00)
[2024-04-19] MEDS ORDERED: SPIRONOLACTONE 25 MG TAB PO SCH (09:00)
[2024-04-19] MEDS ORDERED: ENOXAPARIN SODIUM 40 MG/0.4 ML SYR SUB-Q SCH (09:00)
[2024-04-19] MEDS ORDERED: EMPAGLIFLOZIN 10 MG TAB PO SCH (09:00)
[2024-04-19] MEDS ORDERED: lisinopriL 5 MG TAB PO SCH (09:00)
[2024-04-19] MEDS ORDERED: LEVOTHYROXINE SODIUM 150 MCG TAB PO SCH (09:00)
[2024-04-19] MEDS ORDERED: PHARMACY RENAL DOSE ADJUSTMENT 1 DOSE MISC PO SCH (12:00)
[2024-04-19] MEDS ORDERED: ALBUTEROL SULFATE 0.083% 3 ML VIAL INH PRN (14:45)
[2024-04-19] MEDS ORDERED: ALBUTEROL/IPRATROPIUM 3 ML NEB INH SCH (20:00)
[2024-04-20] VITALS (9 sets, daily range): BP systolic 114–137; BP diastolic 73–84
[2024-04-20 05:56] LABS: BASOPHILS 0.8 % (0-2); EOSINOPHILS 3.3 % (0-6); HEMATOCRIT 41.7 % (35.0-50.0); HEMOGLOBIN 13.8 g/dL (12.0-18.0); LYMPHOCYTES 29.9 % (24-44); MCH 29.5 (27-36); MCHC 33.2 g/dl (30-36); MCV 88.7 fl (81-99); MONOCYTES 11.4 % (0-12); NEUTROPHILS 54.6 % (39-80); PLATELET COUNT 244 K/uL (140-440); RDW 17.1 (10.5-15.0)
[2024-04-20 06:15] LABS: ALBUMIN 3.4 g/dL (3.4-5.0); ALBUMIN/GLOBULIN RATIO 0.85 (1.1-2.4); ANION GAP 7.1 (7-21); BILIRUBIN, TOTAL 1.6 mg/dL (0.2-1.0); BUN/CREATININE RATIO 35.29 (6.0-28.6); CALCIUM 8.3 mg/dL (8.5-10.1); CREATININE, SERUM 0.68 mg/dL (0.70-1.30); POTASSIUM 4.1 mmol/L (3.5-5.1); PROTEIN, TOTAL 7.4 g/dL (6.4-8.2)
[2024-04-20] MEDS ORDERED: IBUPROFEN 400 MG TAB PO ONE (21:15)
[2024-04-21] VITALS (10 sets, daily range): BP systolic 109–146; BP diastolic 64–82
[2024-04-21 05:26] LABS: BASOPHILS 1.1 % (0-2); EOSINOPHILS 3.9 % (0-6); HEMATOCRIT 40.9 % (35.0-50.0); HEMOGLOBIN 13.6 g/dL (12.0-18.0); LYMPHOCYTES 36.7 % (24-44); MCH 29.5 (27-36); MCHC 33.4 g/dl (30-36); MCV 88.4 fl (81-99); MONOCYTES 13.6 % (0-12); NEUTROPHILS 44.7 % (39-80); PLATELET COUNT 245 K/uL (140-440); RBC 4.62 M/ul (4.3-5.7); RDW 17.1 (10.5-15.0)
[2024-04-21 05:45] LABS: ALBUMIN 3.3 g/dL (3.4-5.0); ALBUMIN/GLOBULIN RATIO 0.85 (1.1-2.4); ANION GAP 7.7 (7-21); BILIRUBIN, TOTAL 1.4 mg/dL (0.2-1.0); BUN/CREATININE RATIO 39.74 (6.0-28.6); CALCIUM 8.6 mg/dL (8.5-10.1); CREATININE, SERUM 0.78 mg/dL (0.70-1.30); POTASSIUM 4.7 mmol/L (3.5-5.1); PROTEIN, TOTAL 7.2 g/dL (6.4-8.2)
[2024-04-22 01:34] VITALS: BP 123/56
[2024-04-22 04:44] VITALS: BP 127/80
[2024-04-22 05:39] LABS: BASOPHILS 0.9 % (0-2); EOSINOPHILS 3.7 % (0-6); HEMATOCRIT 40.7 % (35.0-50.0); HEMOGLOBIN 13.6 g/dL (12.0-18.0); LYMPHOCYTES 29.1 % (24-44); MCH 29.4 (27-36); MCHC 33.3 g/dl (30-36); MCV 88.2 fl (81-99); MONOCYTES 16.1 % (0-12); NEUTROPHILS 50.2 % (39-80); PLATELET COUNT 250 K/uL (140-440); RBC 4.62 M/ul (4.3-5.7); RDW 16.6 (10.5-15.0)
[2024-04-22 06:01] LABS: ALBUMIN 3.6 g/dL (3.4-5.0); ALBUMIN/GLOBULIN RATIO 0.88 (1.1-2.4); ANION GAP 6.6 (7-21); BILIRUBIN, TOTAL 1.3 mg/dL (0.2-1.0); BUN/CREATININE RATIO 35.52 (6.0-28.6); CALCIUM 8.7 mg/dL (8.5-10.1); CREATININE, SERUM 0.76 mg/dL (0.70-1.30); POTASSIUM 4.6 mmol/L (3.5-5.1); PROTEIN, TOTAL 7.7 g/dL (6.4-8.2)
[2024-04-22] MEDS ORDERED: FUROSEMIDE 40 MG TAB PO SCH (09:00)
[2024-04-22 09:45] VITALS: BP 129/82
[2024-04-22 10:33] VITALS: BP 129/82
[2024-04-22] MEDS ORDERED: SPIRONOLACTONE25 MG PO (10:42)
[2024-04-22] MEDS ORDERED: CARVEDILOL3.125 MG PO (10:42)
[2024-04-22] MEDS ORDERED: LISINOPRIL5 MG PO (10:42)
[2024-04-22] MEDS ORDERED: FUROSEMIDE40 MG PO (10:44)
[2024-04-22 13:20] VITALS: BP 110/65
== END 2024-04-22 13:35 | disposition home or self-care (01) | DRG 291 ==
LOC: ED 20:54 → MS 20:56
PROVIDERS: Family Medicine; ADMIT Family Medicine; ATTEND Family Medicine
DX: I11.0 Hypertensive heart disease with heart failure (principal); I50.21 Acute systolic (congestive) heart failure; J96.01 Acute respiratory failure with hypoxia; K21.9 Gastro-esophageal reflux disease without esophagitis; E03.9 Hypothyroidism, unspecified; F17.210 Nicotine dependence, cigarettes, uncomplicated; Z96.619 Presence of unspecified artificial shoulder joint; I44.7 Left bundle-branch block, unspecified; F39 Unspecified mood [affective] disorder; F15.90 Other stimulant use, unspecified, uncomplicated; G62.9 Polyneuropathy, unspecified; G47.30 Sleep apnea, unspecified; E80.6 Other disorders of bilirubin metabolism; H92.09 Otalgia, unspecified ear; Z98.890 Other specified postprocedural states; Z88.8 Allergy status to other drugs, medicaments and biological substances; Z79.899 Other long term (current) drug therapy; Z79.890 Hormone replacement therapy; Z79.51 Long term (current) use of inhaled steroids; Z99.81 Dependence on supplemental oxygen
CPT/HCPCS: 36415; 71045; 80048; 80053; 83735; 83880; 84100; 84484; 85025; 87502; 93005; 93010; 93306; 94640; 94667; 94668; 94760; 94761; 94762; 96365; 96366; 96375; 99285-25; 99406; A9270; J1650; J1940; J3475; U0002

== ENCOUNTER 2024-10-22 17:57 | Emergency (ER) | payer OTHER ==
[~2024-10-22] VITALS: Ht 175.3 cm; Wt 101.1 kg
[~2024-10-22 17:57] MED LIST changes: +ACYCLOVIR400 MG PO; +ARTIFICIAL TEAR15 M7 OU; +BUPRENORPHINE HC8 MG SL; +CARVEDILOL3.125 MG PO; +FLUTICASONE-SA1 EAC4 INH; +FUROSEMIDE40 MG PO; +GABAPENTIN800 MG PO; +LEVOTHYROXINE150 MCG PO; +LISINOPRIL5 MG PO; +NARCAN4 MG NAS; +POTASSIUM CHLO20 ME1 PO; +SERTRALINE HCL50 MG PO; +SILDENAFIL CIT100 MG PO; +SPIRONOLACTONE25 MG PO; +TORSEMIDE20 MG PO; +VENTOLIN HFA18 GM INH; +VITAMIN D21250 MCG PO; +VITAMIN D350 MCG PO
[2024-10-22 18:15] LABS: BASOPHILS 0.5 % (0.2-1.2); EOSINOPHILS 2.2 % (0.8-7.0); LYMPHOCYTES 26.0 % (21.8-53.1); MCH 30.2 PG (25.7-32.2); MCHC 33.0 g/dL (32.3-36.5); MCV 91.6 fL (79.0-92.2); MONOCYTES 9.8 % (5.3-12.2); NEUTROPHILS 61.0 % (34.0-67.9); RBC 4.87 M/uL (4.63-6.08)
[2024-10-22] MEDS ORDERED: ASPIRIN 81 MG CHEW PO ONE ×2 (18:15→20:15)
[2024-10-22 18:28] LABS: ALT (SGPT) 23.0 U/L (14-59); AST (SGOT) 20.0 U/L (15-37); GLOMERULAR FILTRATION RATE,EST 93.0 mL/min (>60); PROTEIN, TOTAL 7.8 g/dL (6.4-8.2); UREA NITROGEN 22.0 mg/dL (7-18)
[2024-10-22] MEDS ORDERED: ALDACTONE25 MG PO (20:06)
[2024-10-22] MEDS ORDERED: FUROSEMIDE40 MG PO (20:06)
[2024-10-22] MEDS ORDERED: ZESTRIL5 MG PO (20:06)
[2024-10-22] MEDS ORDERED: COREG3.125 MG PO (20:06)
[2024-10-22 20:23] VITALS: BP 149/96
--- NOTE | 2024-10-23 07:36 | EKG ---
[facility] [address] [place] [address] Signed Normal sinus rhythm Left bundle branch block Abnormal ECG When compared with ECG of 17-APR-2024 20:58, No significant change was found Confirmed by MORRO LAWS MD ([id number]) on 10/23/2024 7:36:10 AM Electronically Signed By: MORRO LAWS 10/23/24 0736 PATIENT NAME: ROSAMARIA DONALD RESHMA Electrocardiogram DATE OF : 69 PHYSICIAN: MORRO LAWS REPORT #: [id number] REPORT IS CONFIDENTIAL AND NOT TO BE RELEASED WITHOUT AUTHORIZATION
== END 2024-10-22 20:26 | disposition home or self-care (01) ==
LOC: ED 17:57
PROVIDERS: Emergency Medicine
DX: I11.0 Hypertensive heart disease with heart failure (principal); I50.9 Heart failure, unspecified; R07.9 Chest pain, unspecified; K21.9 Gastro-esophageal reflux disease without esophagitis; E03.9 Hypothyroidism, unspecified; F17.200 Nicotine dependence, unspecified, uncomplicated; Z91.030 Bee allergy status; Z88.8 Allergy status to other drugs, medicaments and biological substances; Z79.890 Hormone replacement therapy; Z79.899 Other long term (current) drug therapy
CPT/HCPCS: 36415; 71045; 80053; 83735; 83880; 84484; 85025; 93005; 93010; 99285-25; A9270